=== PATIENT | female | born 1955 | race African-American/Black ===

== ENCOUNTER 2020-06-23 15:05 | Inpatient (IN) | payer MEDICARE, MEDICAID ==
[~2020-06-23] VITALS: Ht 160 cm; Wt 128.7 kg
[~2020-06-23 15:05] MED LIST: ACETAMINOPHEN325 MG PO; AMBIEN5 MG PO; CARDIZEM30 MG PO; CLARITIN 10 MG10 MG PO; FLUTICASONE PRO16 GM NASAL; HUMALOG 30100 UNITS/ SC; HYDROXYZINE HCL10 MG PO; LINEZOLID600 MG PO; LOMOTIL TABLET1 TAB PO; MUCINEX600 MG PO; MYCOSTATIN500000 UNI PO; OMEPRAZOLE20 M1 PO; POTASSIUM CHLO20 MEQ PO; PREDNISONE20 MG PO; PROVENTIL/2.5 MG/3 M INH; XALATAN 0.0052.5 ML EACH EYE; XANAX0.5 MG PO; XIFAXAN550 MG PO; ZOFRAN4 MG PO
[2020-06-23 15:43] LABS: BASOPHILS 0.4 % (0-2); EOSINOPHILS 1.7 % (0-7); HEMATOCRIT 34.6 % (36.0-48.0); HEMOGLOBIN 10.5 g/dL (12-16); LYMPHOCYTES 33.2 % (15-50); MCH 28.6 pg (26.0-34.0); MCHC 30.3 g/dL (31.0-37.0); MCV 94.3 fL (80.0-100.0); MEAN PLATELET VOLUME 9.9 fL (7.4-10.4); MONOCYTES 10.4 % (2-11); NEUTROPHILS 54.3 % (40-80); PLATELET COUNT 196 10x3/uL (130-400); RBC 3.67 10x6/uL (4.00-5.40); RDW 14.6 % (11.5-14.5); WBC 5.4 10x3/uL (4.8-10.8)
[2020-06-23 15:56] LABS: CALC OSMOLALITY 290 mosm/kg (275-300); CALCIUM 7.4 mg/dL (8.5-10.1); CARBON DIOXIDE 27.9 mmol/L (21.0-32.0); CHLORIDE - SERUM 98 mmol/L (98-107); CREATININE - SERUM 12.2 mg/dL (0.6-1.3); POTASSIUM - SERUM 3.8 mmol/L (3.5-5.1); SODIUM 139 mmol/L (136-145); UREA NITROGEN 42 mg/dL (7-18); eGFR NON AFRICAN AMERICAN 3 mL/min (90-120)
[2020-06-23 16:04] LABS: ALKALINE PHOSPHATASE 70 U/L (30-120); ALT (SGPT) 15 U/L (10-68); AMYLASE - SERUM 174 U/L (25-115); LIPASE 364 U/L (73-393); PROTEIN - SERUM 7.8 g/dL (6.4-8.2); TROPONIN-I < 0.017 ng/mL (0.000-0.060)
[2020-06-23 16:28] LABS: GLUCOSE 138 mg/dL (74-106)
--- NOTE | 2020-06-23 20:50 | NUR ---
RECEIVED FROM ER, A&OX4, HISTORY AND MEDS REVIEWED, ON ISO-PUI, L-AVF, DENIES ANY NEEDS, BED IS LOW, SRX2, CALL LIGHT IN REACH, WILL CONTINUE PLAN OF CARE
[2020-06-23 21:50] VITALS: BP 105/52
--- NOTE | 2020-06-23 21:55 | NUR ---
PAGED RENAL ACCOUNT DEVELOPMENT MANAGER, ABOUT LOVENOX AND PEPCID
--- NOTE | 2020-06-23 22:03 | NUR ---
DR. WEISS SAID TO PLACE LOVENOX AND PEPCID ON HOLD, WILL LOOK AT THESE TOMORROW
[2020-06-24 02:38] VITALS: BP 105/52; BMI 39.0
[2020-06-24 04:41] VITALS: BP 108/54
[2020-06-24 06:30] LABS: BASOPHILS 0.8 % (0-2); EOSINOPHILS 4.5 % (0-7); HEMATOCRIT 32.7 % (36.0-48.0); HEMOGLOBIN 9.9 g/dL (12-16); IMMATURE GRANULOCYTES 0.3 % (0-5); LYMPHOCYTES 31.2 % (15-50); MCH 28.4 pg (26.0-34.0); MCHC 30.3 g/dL (31.0-37.0); MEAN PLATELET VOLUME 9.6 fL (7.4-10.4); MONOCYTES 11.3 % (2-11); NEUTROPHILS 51.9 % (40-80); PLATELET COUNT 217 10x3/uL (130-400); RBC 3.48 10x6/uL (4.00-5.40); RDW 14.4 % (11.5-14.5)
[2020-06-24 06:40] LABS: WBC 3.8 10x3/uL (4.8-10.8)
[2020-06-24 06:42] LABS: ANION GAP 18.1 mmol/L (8-16); CALCIUM 7.2 mg/dL (8.5-10.1); CARBON DIOXIDE 27.8 mmol/L (21.0-32.0); CREATININE - SERUM 13.3 mg/dL (0.6-1.3); PHOSPHOROUS 5.6 mg/dL (2.5-4.9); POTASSIUM - SERUM 3.9 mmol/L (3.5-5.1)
--- NOTE | 2020-06-24 07:00 | NUR ---
RECEIVED REPORT. ASSUMED CARE OF PATIENT. PATIENT REMAINS IN ISOLATION FOR PUI FOR COVID19.
[2020-06-24 07:49] VITALS: BP 116/72
[2020-06-24 11:23] LABS: C-REACTIVE PROTEIN 19.6 mg/dL (0.0-0.9)
--- NOTE | 2020-06-24 11:54 | NUR ---
FSBS 152. PATIENT REFUSED INSULIN ADMINISTRATION DUE TO SHE SAYS SHE IS NOT EATING ENOUGH AND WILL BOTTOM OUT IF TREATED.
--- NOTE | 2020-06-24 16:35 | NUR ---
FSBS 152 AGAIN AT THIS TIME. GLUCOSE UNCHANGED. PATIENT REFUSES INSULIN AT THIS TIME AGAIN.
[2020-06-24 17:04] VITALS: BP 144/69
[2020-06-24 21:33] VITALS: BP 149/82
[2020-06-25 05:00] VITALS: BP 119/64
[2020-06-25 06:50] LABS: ANION GAP 16.4 mmol/L (8-16); CALCIUM 7.3 mg/dL (8.5-10.1); CARBON DIOXIDE 24.1 mmol/L (21.0-32.0); CREATININE - SERUM 15.6 mg/dL (0.6-1.3); MAGNESIUM - SERUM 2.1 mg/dL (1.8-2.4); PHOSPHOROUS 6.8 mg/dL (2.5-4.9); POTASSIUM - SERUM 4.5 mmol/L (3.5-5.1)
[2020-06-25 07:50] LABS: BASOPHILS 0.2 % (0-2); EOSINOPHILS 0.5 % (0-7); HEMATOCRIT 32.7 % (36.0-48.0); HEMOGLOBIN 10.3 g/dL (12-16); IMMATURE GRANULOCYTES 0.2 % (0-5); LYMPHOCYTES 7.8 % (15-50); MCH 28.9 pg (26.0-34.0); MCHC 31.5 g/dL (31.0-37.0); MEAN PLATELET VOLUME 9.9 fL (7.4-10.4); MONOCYTES 4.5 % (2-11); NEUTROPHILS 86.8 % (40-80); PLATELET COUNT 241 10x3/uL (130-400); RBC 3.57 10x6/uL (4.00-5.40); RDW 14.2 % (11.5-14.5)
[2020-06-25 07:52] LABS: MCV 91.6 fL (80.0-100.0); WBC 6.2 10x3/uL (4.8-10.8)
--- NOTE | 2020-06-25 08:00 | NUR ---
PT SITTING UP, RR EVEN AND LABORED UPON EXERTION ON RA. PT HAD TAKEN O2 OFF. PLACED BACK ON. STATES SHE FEELS BETTER. CALL LIGHT WITHIN REACH. BED IN LOWEST POSITON. CALL LIGHT WITHIN REACH. WILL CONTINUE TO MONITOR.
[2020-06-25 08:46] VITALS: BP 123/69
[2020-06-25 13:57] VITALS: Ht 160 cm; Wt 128.7 kg
[2020-06-25 21:11] VITALS: BP 130/84
[2020-06-26 07:16] LABS: BASOPHILS 0.1 % (0-2); EOSINOPHILS 4.3 % (0-7); HEMATOCRIT 32.6 % (36.0-48.0); HEMOGLOBIN 10.2 g/dL (12-16); IMMATURE GRANULOCYTES 0.1 % (0-5); LYMPHOCYTES 6.4 % (15-50); MCH 28.5 pg (26.0-34.0); MCHC 31.3 g/dL (31.0-37.0); MCV 91.1 fL (80.0-100.0); MONOCYTES 4.7 % (2-11); NEUTROPHILS 84.4 % (40-80); PLATELET COUNT 247 10x3/uL (130-400); RBC 3.58 10x6/uL (4.00-5.40); RDW 14.2 % (11.5-14.5); WBC 7.7 10x3/uL (4.8-10.8)
[2020-06-26 07:34] LABS: ANION GAP 21.8 mmol/L (8-16); CALCIUM 7.6 mg/dL (8.5-10.1); CARBON DIOXIDE 24.8 mmol/L (21.0-32.0); CREATININE - SERUM 12.1 mg/dL (0.6-1.3)
[2020-06-26 07:35] LABS: POTASSIUM - SERUM 3.6 mmol/L (3.5-5.1)
[2020-06-26 09:24] VITALS: BP 94/68
[2020-06-26 11:39] VITALS: BP 98/57
[2020-06-26 14:09] VITALS: BP 112/75
[2020-06-26] MEDS ORDERED: FEXOFENADINE HC60 MG PO (16:12)
[2020-06-26] MEDS ORDERED: MIDODRINE HCL2.5 MG PO (16:13)
[2020-06-26] MEDS ORDERED: AZITHROMYCIN500 MG PO (16:14)
[2020-06-26] MEDS ORDERED: DECADRON4 MG PO (16:14)
[2020-06-26] MEDS ORDERED: OMNICEF300 MG PO (16:15)
--- NOTE | 2020-06-26 17:29 | MORECARE ---
CASE MANAGEMENT DISCHARGE SUMMARY PATIENT: LANDEN HONG UNIT: [id number] ADM DATE: 06/23/20 AGE: 65 : 54 SEX: F ROOM/BED: D.0137 AUTHOR: CONOR DUMONT PHYSICIAN: REFERRING PHYSICIAN: RICKY GARCIA MD DATE OF SERVICE: 06/26/20 Discharge Plan Patient Name: LANDEN HONG [facility] [facility] 1955 Planned Disposition: Anticipated Discharge Date: 06/27/20 Discharge Date: Expected LOS: 4 Initial Reviewer: [email or web address] Initial Review Date: 06/23/2020 Generated: 06/26/20 6:28 pm Comments DCP- Discharge Planning Updated by [email or web address]: Celeste Mauro on 06/26/20 4:[address] CM contacted Sandra Brenden (HD) regarding HD days/time and that she is COVID positive. Per Sandra, the patient CANNOT go back to her HD chair in [place]. The patient will have to go to [facility] for HD, M/W/FR. There is NOT A TIME SET UP FOR HD as yet, as the unit is already closed for the day. Sandra will be in contact with [facility] HD unit 06/27, for the HD chair. Await CB. Patient Name: LANDEN HONG Page 96110 at 1729 All edits/amendments must be made on the electronic document DICTATION DATE: 06/26/201727 RESIDENTIAL FINISH CARPENTER: REYNOLD 06/26/201727 RPT#: [id number] DC DATE: STATUS: ADM IN [facility] [address] [place] [address] END OF REPORT
--- NOTE | 2020-06-26 17:55 | MORECARE ---
CASE MANAGEMENT DISCHARGE SUMMARY PATIENT: LANDEN HONG UNIT: [id number] ADM DATE: 06/23/20 AGE: 65 : 54 SEX: F ROOM/BED: D.6588 AUTHOR: CONOR DUMONT PHYSICIAN: REFERRING PHYSICIAN: RICKY GARCIA MD DATE OF SERVICE: 06/26/20 Discharge Plan Patient Name: LANDEN HONG Facility: [facility]:[place] : 1955 Planned Disposition: Anticipated Discharge Date: 06/27/20 Discharge Date: Expected LOS: 4 Initial Reviewer: [email or web address] Initial Review Date: 06/23/2020 Generated: 06/26/20 6:55 pm Comments DCP- Discharge Planning Updated by [email or web address]: Celeset Mauro on 06/26/20 4:[address] CM contacted Sandra Brenden (HD) regarding HD days/time and that she is COVID positive. Per Sandra, the patient CANNOT go back to her HD chair in [place]. The patient will have to go to [facility] for HD, M/W/FR. There is NOT A TIME SET UP FOR HD as yet, as the unit is already closed for the day. Sandra will be in contact with [facility] HD unit 06/27, for the HD chair. Await CB.Patient will also require transportation to and from HD unit. Last DP export: 06/26/20 4:28 pm Patient Name: LANDEN HONG Page [phone] at 1755 All edits/amendments must be made on the electronic document DICTATION DATE: 06/26/201754 PROCESS CHEESE COOKER: REYNOLD 06/26/201754 RPT#: [id number] DC DATE: STATUS: ADM IN [facility] [address] [place] [address] END OF REPORT
--- NOTE | 2020-06-26 18:23 | NUR ---
NOTIFIED FAMILY OF PT THAT PT WILL NOT BE DISCHARGED TODAY R/T NOT HAVING A CHAIR FOR DIALYSIS AND THAT PT WILL STAY AND DIALIZE TOMORROW WHICH WILL ALLOW FOR TIME TO SET UP DIALYSIS IN [facility]. FAMILY AGREED THAT WOULD BE BEST AT THIS TIME. WILL CTM.
--- NOTE | 2020-06-26 19:00 | NUR ---
PT RESTING IN BED. HAS 2L NC ON. NO DISTRESS NOTED. SHE DENIES NEEDS OR PAIN. BED IS LOW AND CALL LIGHT IS WITHIN REACH.
[2020-06-26 20:00] VITALS: BP 119/72
[2020-06-27 04:00] VITALS: BP 115/65
--- NOTE | 2020-06-27 07:51 | MORECARE ---
CASE MANAGEMENT DISCHARGE SUMMARY PATIENT: LANDEN HONG UNIT: [id number] ADM DATE: 06/23/20 AGE: 65 : 54 SEX: F ROOM/BED: D.2090 AUTHOR: CONOR DUMONT PHYSICIAN: REFERRING PHYSICIAN: RICKY GARCIA MD DATE OF SERVICE: 06/27/20 Discharge Plan Patient Name: LANDEN HONG Facility: [facility]:[place] : 1955 Planned Disposition: Home Anticipated Discharge Date: 06/27/20 Discharge Date: Expected LOS: 4 Initial Reviewer: [email or web address] Initial Review Date: 06/23/2020 Generated: 06/27/20 8:50 am Comments DCP- Discharge Planning Updated by [email or web address]: Celeste Mauro on 06/26/20 4:[address] CM contacted Sandra Brenden (HD) regarding HD days/time and that she is COVID positive. Per Sandra, the patient CANNOT go back to her HD chair in [place]. The patient will have to go to [facility] for HD, M/W/FR. There is NOT A TIME SET UP FOR HD as yet, as the unit is already closed for the day. Sandra will be in contact with [facility] HD unit 06/27, for the HD chair. Await CB.Patient will also require transportation to and from HD unit. Last DP export: 06/26/20 4:55 pm Patient Name: LANDEN HONG Page [phone] at 0751 All edits/amendments must be made on the electronic document DICTATION DATE: 06/27/20749 STUDENT RECORDS COORDINATOR: REYNOLD 06/27/20749 RPT#: [id number] DC DATE: STATUS: ADM IN [facility] [address] [place] [address] END OF REPORT
--- NOTE | 2020-06-27 07:58 | MORECARE ---
CASE MANAGEMENT DISCHARGE SUMMARY PATIENT: LANDEN HONG UNIT: [id number] ADM DATE: 06/23/20 AGE: 65 : 54 SEX: F ROOM/BED: D.4455 AUTHOR: JULIA,DOC PHYSICIAN: REFERRING PHYSICIAN: RICKY GARCIA MD DATE OF SERVICE: 06/27/20 Discharge Plan Patient Name: LANDEN HONG Facility: [facility]:[place] : 1955 Planned Disposition: Home Anticipated Discharge Date: 06/27/20 Discharge Date: Expected LOS: 4 Initial Reviewer: [email or web address] Initial Review Date: 06/23/2020 Generated: 06/27/20 8:57 am Comments DCP- Discharge Planning Updated by [email or web address]: Celeste Mauro on 06/26/20 4:[address] CM contacted Sandra Brenden (HD) regarding HD days/time and that she is COVID positive. Per Sandra, the patient CANNOT go back to her HD chair in [place]. The patient will have to go to [facility] for HD, M/W/FR. There is NOT A TIME SET UP FOR HD as yet, as the unit is already closed for the day. Sandra will be in contact with [facility] HD unit 06/27, for the HD chair. Await CB.Patient will also require transportation to and from HD unit. DCPIA - Discharge Planning Initial Assessment Updated by [email or web address]: Mony Davenport on 06/27/20 7:57 am * Is the patient Alert and Oriented? Yes * How many steps to enter\exit or inside your home? 0/0 * Pharmacy [facility] * Preadmission Environment Home with Family * Equipment None * List name and contact numbers for known caregivers / representatives who currently or will assist patient after discharge: MALLORY DUPONT [phone] * Verbal permission to speak to the caregivers and representatives has been obtained from the patient. Yes * Community resources currently utilized Other * Please name any agencies selected above. [facility] M[facility]F [facility] * Additional services required to return to the preadmission environment? No * Can the patient safely return to the preadmission environment? Yes * Has this patient been hospitalized within the prior 30 days at any hospital? No Last DP export: 06/27/20 6:51 am Patient Name: LANDEN HONG Page [phone] at 0758 All edits/amendments must be made on the electronic document DICTATION DATE: 06/27/20756 GENERAL HANDLING SUPERVISOR: REYNOLD 06/27/20 0757 RPT#: [id number] DC DATE: STATUS: ADM IN [facility] [address] [place] [address] END OF REPORT
--- NOTE | 2020-06-27 08:04 | MORECARE ---
CASE MANAGEMENT DISCHARGE SUMMARY PATIENT: LANDEN HONG UNIT: [id number] ADM DATE: 06/23/20 AGE: 65 : 54 SEX: F ROOM/BED: D.6770 AUTHOR: CONOR DUMONT PHYSICIAN: REFERRING PHYSICIAN: RICKY GARCIA MD DATE OF SERVICE: 06/27/20 Discharge Plan Patient Name: LANDEN HONG Facility: [facility]:[place] : 1955 Planned Disposition: Home Anticipated Discharge Date: 06/27/20 Discharge Date: Expected LOS: 4 Initial Reviewer: [email or web address] Initial Review Date: 06/23/2020 Generated: 06/27/20 9:04 am Comments DCP- Discharge Planning Updated by [email or web address]: Mony Davenport on 06/27/20 7:[address] Patient Name: LANDEN HONG Admission Status: ER Accout number: [id number] Admission Date: 06-23-2020 : 1955 Admission Diagnosis:COVID-19 Attending: RICKY GARCIA Current LOS: 4 Anticipated DC Date: 06-27-2020 Planned Disposition: Home Primary Insurance: [facility] MEDICARE SOLUTIONS LATE ENTRY ASSESSMENT COMPLETED 06/25/20 Discharge Planning Comments: Cm spoke with patient via phone to complete initial dc planning assessment. CM educated patient on the CM role and verbal consent given by patient to complete assessment. CM verified patient's address, phone number, and emergency contact phone numbers. Patient lives at home with her family. At discharge patient plans to return home and feels this is a safe discharge. CM discussed availability of home health, rehab services, and medical equipment. Patient denied known discharge needs at this time. Pt has an HD outpatient chair at [place] with a schedule of , and she has been scheduled for e [facility] unit at 0700. CM spoke with patient about this change. CM instructed pt will need to find arrangements for this new schedule. Pt stated she will get a bus ride. CM instructed pt that she will still be positive for COVID and public transportation may not provide transportation. Pt verbalized understanding. Stated her or daughter will drive her. Transportation provider at discharge will be her family. CM will continue to follow and will assist as needed with dc plans/needs. Performance Makeup Artist: Mony Davenport DCP- Discharge Planning Updated by [email or web address]: Celeste Turpinlroy on 06/26/20 4:[address] CM contacted Sandra Brenden (HD) regarding HD days/time and that she is COVID positive. Per Sandra, the patient CANNOT go back to her HD chair in [place]. The patient will have to go to [facility] for HD, M/W/FR. There is NOT A TIME SET UP FOR HD as yet, as the unit is already closed for the day. Sandra will be in contact with [facility] HD unit 06/27, for the HD chair. Await CB.Patient will also require transportation to and from HD unit. DCPIA - Discharge Planning Initial Assessment Updated by [email or web address]: Mony Davenport on 06/27/20 7:57 am * Is the patient Alert and Oriented? Yes * How many steps to enter\exit or inside your home? 0/0 * Pharmacy [facility] * Preadmission Environment Home with Family * Equipment None * List name and contact numbers for known caregivers / representatives who currently or will assist patient after discharge: MALLORY DUPONT [phone] * Verbal permission to speak to the caregivers and representatives has been obtained from the patient. Yes * Community resources currently utilized Other * Please name any agencies selected above. [facility] M[facility]F HD [facility]AIR * Additional services required to return to the preadmission environment? No * Can the patient safely return to the preadmission environment? Yes * Has this patient been hospitalized within the prior 30 days at any hospital? No Last DP export: 06/27/20 6:58 am Patient Name: LANDEN HONG Page 11489 at 0804 All edits/amendments must be made on the electronic document DICTATION DATE: 06/27/20803 NEUROLOGY TECHNOLOGIST: REYNOLD 06/27/20803 RPT#: [id number] DC DATE: STATUS: ADM IN [facility] [address] [place] [address] END OF REPORT
--- NOTE | 2020-06-27 08:29 | MORECARE ---
CASE MANAGEMENT DISCHARGE SUMMARY PATIENT: LANDEN HONG UNIT: [id number] ADM DATE: 06/23/20 AGE: 65 : 54 SEX: F ROOM/BED: D.3263 AUTHOR: CONOR DUMONT PHYSICIAN: REFERRING PHYSICIAN: RICKY GARCIA MD DATE OF SERVICE: 06/27/20 Discharge Plan Patient Name: LANDEN HONG Facility: [facility]:[place] : 1955 Planned Disposition: Home Anticipated Discharge Date: 06/27/20 Discharge Date: Expected LOS: 4 Initial Reviewer: [email or web address] Initial Review Date: 06/23/2020 Generated: 06/27/20 9:28 am Comments DCP- Discharge Planning Updated by [email or web address]: Mony Davenport on 06/27/20 7:[address] Patient Name: LANDEN HONG Encounter No: [id number] : 1955 Primary Insurance: [employer] MEDICARE SOLUTIONS Anticipated DC Date: 06-27-2020 Planned Disposition: Home External Planned Provider: : DCP follow-up note: CM called pt about final dc plan. CM reinforced new HD place and time. Pt stated her family will transport her to dialysis. Pt has home o2 from [employer] supplies. Pt states she does not have he portable tank with her. CM called her daughter Mallory at [phone] who has agreed to bring her tank when she comes to pick her up. DC IMM explained via phone verbalized understanding. CM spoke to patient about home health, and Rehab. Pt denies additional DC needs at this time. Declination verbalized for home health, and rehab. Patient and family in agreement with discharge plan. No changes to plan. Case management will follow and assist as needed. Mony aDvenport DCP- Discharge Planning Updated by [email or web address]: Mony Davenport on 06/27/20 7:[address] Patient Name: LANDEN HONG Admission Status: ER Accout number: [id number] Admission Date: 06-23-2020 : 1955 Admission Diagnosis:COVID-19 Attending: RICKY GARCIA Current LOS: 4 Anticipated DC Date: 06-27-2020 Planned Disposition: Home Primary Insurance: [facility] MEDICARE SOLUTIONS LATE ENTRY ASSESSMENT COMPLETED 06/25/20 Discharge Planning Comments: Cm spoke with patient via phone to complete initial dc planning assessment. CM educated patient on the CM role and verbal consent given by patient to complete assessment. CM verified patient's address, phone number, and emergency contact phone numbers. Patient lives at home with her family. At discharge patient plans to return home and feels this is a safe discharge. CM discussed availability of home health, rehab services, and medical equipment. Patient denied known discharge needs at this time. Pt has an HD outpatient chair at [place] with a schedule of , and she has been scheduled for e [facility] unit -- at 0700. CM spoke with patient about this change. CM instructed pt will need to find arrangements for this new schedule. Pt stated she will get a bus ride. CM instructed pt that she will still be positive for COVID and public transportation may not provide transportation. Pt verbalized understanding. Stated her or daughter will drive her. Transportation provider at discharge will be her family. CM will continue to follow and will assist as needed with dc plans/needs. Flash Welding Machine Operator: Mony Davenport DCP- Discharge Planning Updated by [id number]: Celeste Mauro on 06/26/20 4:[address] CM contacted Sandra Brenden (HD) regarding HD days/time and that she is COVID positive. Per Sandra, the patient CANNOT go back to her HD chair in [place]. The patient will have to go to [facility] for HD, M/W/FR. There is NOT A TIME SET UP FOR HD as yet, as the unit is already closed for the day. Sandra will be in contact with [facility] HD unit 06/27, for the HD chair. Await CB.Patient will also require transportation to and from HD unit. DCPIA - Discharge Planning Initial Assessment Updated by [id number]: Mony Davenport on 06/27/20 7:57 am * Is the patient Alert and Oriented? Yes * How many steps to enter\exit or inside your home? 0/0 * Pharmacy [facility] * Preadmission Environment Home with Family * Equipment None * List name and contact numbers for known caregivers / representatives who currently or will assist patient after discharge: MALLORY DUPONT [phone] * Verbal permission to speak to the caregivers and representatives has been obtained from the patient. Yes * Community resources currently utilized Other * Please name any agencies selected above. [facility] * Additional services required to return to the preadmission environment? No * Can the patient safely return to the preadmission environment? Yes * Has this patient been hospitalized within the prior 30 days at any hospital? No Last DP export: 06/27/20 7:04 am Patient Name: LANDEN HONG Page 24565 at 0829 All edits/amendments must be made on the electronic document DICTATION DATE: 06/27/20827 HEEL BRUSHER: REYNOLD 06/27/20827 RPT#: [id number] DC DATE: STATUS: ADM IN [facility] [address] [place] [address] END OF REPORT
--- NOTE | 2020-06-27 08:41 | NUR ---
I CALLED [facility] TO SEE WHAT TIME FOR DIALYSIS TODAY FOR DISCHARGE. SHE STATES THAT SHE WILL TRY TO DO HER FIRST.
--- NOTE | 2020-06-27 08:46 | NUR ---
AARTI GALLAGHER APN TO COME BY AND STATE THAT PATIENT DOES NOT NEED DIALYSIS TODAY. I CALLED [facility] AND LET HER BE AWARE OF THIS.
[2020-06-27 08:55] VITALS: BP 101/63
--- NOTE | 2020-06-27 09:56 | MORECARE ---
CASE MANAGEMENT DISCHARGE SUMMARY PATIENT: LANDEN HONG UNIT: [id number] ADM DATE: 06/23/20 AGE: 65 : 53 SEX: F ROOM/BED: D.0279 AUTHOR: CONOR DUMONT PHYSICIAN: REFERRING PHYSICIAN: RICKY GARCIA MD DATE OF SERVICE: 06/27/20 Discharge Plan Patient Name: LANDEN HONG Facility: [facility]:[place] : 1955 Planned Disposition: Home Anticipated Discharge Date: 06/27/20 Discharge Date: Expected LOS: 4 Initial Reviewer: [email or web address] Initial Review Date: 06/23/2020 Generated: 06/27/20 10:56 am Comments DCP- Discharge Planning Updated by [email or web address]: Mony Davenport on 06/27/20 7:[address] Patient Name: LANDEN HONG Encounter No: [id number] : 1955 Primary Insurance: [employer] MED[employer] SOLUTIONS Anticipated DC Date: 06-27-2020 Planned Disposition: Home External Planned Provider: : DCP follow-up note: CM called pt about final dc plan. CM reinforced new HD place and time. Pt stated her family will transport her to dialysis. Pt has home o2 from [employer] supplies. Pt states she does not have he portable tank with her. CM called her daughter Mallory at [phone] who has agreed to bring her tank when she comes to pick her up. DC IMM explained via phone verbalized understanding. CM spoke to patient about home health, and Rehab. Pt denies additional DC needs at this time. Declination verbalized for home health, and rehab. Patient and family in agreement with discharge plan. No changes to plan. Case management will follow and assist as needed. Mony Davenport DCP- Discharge Planning Updated by [email or web address]: Mony Davenport on 06/27/20 7:[address] Patient Name: LANDEN HONG Admission Status: ER Accout number: [id number] Admission Date: 06-23-2020 : 1955 Admission Diagnosis:COVID-19 Attending: RICKY GARCIA Current LOS: 4 Anticipated DC Date: 06-27-2020 Planned Disposition: Home Primary Insurance: [facility] MEDICARE SOLUTIONS LATE ENTRY ASSESSMENT COMPLETED 06/25/20 Discharge Planning Comments: Cm spoke with patient via phone to complete initial dc planning assessment. CM educated patient on the CM role and verbal consent given by patient to complete assessment. CM verified patient's address, phone number, and emergency contact phone numbers. Patient lives at home with her family. At discharge patient plans to return home and feels this is a safe discharge. CM discussed availability of home health, rehab services, and medical equipment. Patient denied known discharge needs at this time. Pt has an HD outpatient chair at [place] with a schedule of , and she has been scheduled for e [facility] unit -- at 0700. CM spoke with patient about this change. CM instructed pt will need to find arrangements for this new schedule. Pt stated she will get a bus ride. CM instructed pt that she will still be positive for COVID and public transportation may not provide transportation. Pt verbalized understanding. Stated her or daughter will drive her. Transportation provider at discharge will be her family. CM will continue to follow and will assist as needed with dc plans/needs. Aerial Survey Technician: Mony Davenport DCP- Discharge Planning Updated by [email or web address]: Celeste Mauro on 06/26/20 4:[address] CM contacted Sandra Brenden (HD) regarding HD days/time and that she is COVID positive. Per Sandra, the patient CANNOT go back to her HD chair in [place]. The patient will have to go to [facility] for HD, M/W/FR. There is NOT A TIME SET UP FOR HD as yet, as the unit is already closed for the day. Sandra will be in contact with [facility] HD unit 06/27, for the HD chair. Await CB.Patient will also require transportation to and from HD unit. DCPIA - Discharge Planning Initial Assessment Updated by [email or web address]: Mony Davenport on 06/27/20 7:57 am * Is the patient Alert and Oriented? Yes * How many steps to enter\exit or inside your home? 0/0 * Pharmacy [facility] * Preadmission Environment Home with Family * Equipment None * List name and contact numbers for known caregivers / representatives who currently or will assist patient after discharge: MALLORY DUPONT [phone] * Verbal permission to speak to the caregivers and representatives has been obtained from the patient. Yes * Community resources currently utilized Other * Please name any agencies selected above. [facility] * Additional services required to return to the preadmission environment? No * Can the patient safely return to the preadmission environment? Yes * Has this patient been hospitalized within the prior 30 days at any hospital? No External Providers External Provider: OTHER-OTHER Next Contact Date: Service Request Date: Service Type: Resolution: Reviewer: Comments: Last DP export: 06/27/20 7:29 am Patient Name: LANDEN HONG Page 12768 at 0956 All edits/amendments must be made on the electronic document DICTATION DATE: 06/27/20955 AVIATION SAFETY TECHNICIAN: REYNOLD 06/27/20955 RPT#: [id number] DC DATE: STATUS: ADM IN [facility] [address] [place] [address] END OF REPORT
--- NOTE | 2020-06-27 10:08 | NUR ---
PT SITTING UP IN BED, RR EVEN AND UNLABORED. DENIES NEEDS OR PAIN AT THIS TIME. CALL LIGHT WTIHIN RECH, BED IN LOWEST POSITION. WILL CONTINUE TO MONITOR.
--- NOTE | 2020-06-27 12:26 | MORECARE ---
CASE MANAGEMENT DISCHARGE SUMMARY PATIENT: LANDEN HONG UNIT: [id number] ADM DATE: 06/23/20 AGE: 65 : 53 SEX: F ROOM/BED: D.2224 AUTHOR: CONOR DUMONT PHYSICIAN: REFERRING PHYSICIAN: RICKY GARCIA MD DATE OF SERVICE: 06/27/20 Discharge Plan Patient Name: LANDEN HONG Facility: [facility]:[place] : 1955 Planned Disposition: Home Anticipated Discharge Date: 06/27/20 Discharge Date: Expected LOS: 4 Initial Reviewer: [email or web address] Initial Review Date: 06/23/2020 Generated: 06/27/20 1:26 pm Comments DCP- Discharge Planning Updated by [email or web address]: Mony Davenport on 06/27/20 7:[address] Patient Name: LANDEN HNOG Encounter No: [id number] : 1955 Primary Insurance: [employer] Anticipated DC Date: 06-27-2020 Planned Disposition: Home External Planned Provider: : DCP follow-up note: CM called pt about final dc plan. CM reinforced new HD place and time. Pt stated her family will transport her to dialysis. Pt has home o2 from [email or web address] supplies. Pt states she does not have he portable tank with her. CM called her daughter Mallory at [phone] who has agreed to bring her tank when she comes to pick her up. DC IMM explained via phone verbalized understanding. CM spoke to patient about home health, and Rehab. Pt denies additional DC needs at this time. Declination verbalized for home health, and rehab. Patient and family in agreement with discharge plan. No changes to plan. Case management will follow and assist as needed. Mony Davenport DCP- Discharge Planning Updated by [id number]: Mony Davenport on 06/27/20 7:[address] Patient Name: LANDEN HONG Admission Status: ER Accout number: [id number] Admission Date: 06-23-2020 : 1955 Admission Diagnosis:COVID-19 Attending: RICKY GARCIA Current LOS: 4 Anticipated DC Date: 06-27-2020 Planned Disposition: Home Primary Insurance: [facility] MEDICARE SOLUTIONS LATE ENTRY ASSESSMENT COMPLETED 06/25/20 Discharge Planning Comments: Cm spoke with patient via phone to complete initial dc planning assessment. CM educated patient on the CM role and verbal consent given by patient to complete assessment. CM verified patient's address, phone number, and emergency contact phone numbers. Patient lives at home with her family. At discharge patient plans to return home and feels this is a safe discharge. CM discussed availability of home health, rehab services, and medical equipment. Patient denied known discharge needs at this time. Pt has an HD outpatient chair at [facility] with a schedule of , and she has been scheduled for [facility] unit -- at 0700. CM spoke with patient about this change. CM instructed pt will need to find arrangements for this new schedule. Pt stated she will get a bus ride. CM instructed pt that she will still be positive for COVID and public transportation may not provide transportation. Pt verbalized understanding. Stated her or daughter will drive her. Transportation provider at discharge will be her family. CM will continue to follow and will assist as needed with dc plans/needs. Elevator Erector: Mony Davenport DCP- Discharge Planning Updated by [email or web address]: Celeste Mauro on 06/26/20 4:[address] CM contacted Sandra Brenden (HD) regarding HD days/time and that she is COVID positive. Per Sandra, the patient CANNOT go back to her HD chair in [facility]. The patient will have to go to [facility] for HD, M/W/FR. There is NOT A TIME SET UP FOR HD as yet, as the unit is already closed for the day. Sandra will be in contact with [facility] HD unit 06/27, for the HD chair. Await CB.Patient will also require transportation to and from HD unit. DCPIA - Discharge Planning Initial Assessment Updated by [email or web address]: Mony Davenport on 06/27/20 12:17 pm * Is the patient Alert and Oriented? Yes * How many steps to enter\exit or inside your home? 0/0 * PCP Dr Wang * Pharmacy [facility] * Preadmission Environment Home with Family * ADLs Independent * Equipment Bedside Commode Cane Elevated [place] Seat Glucometer Nebulizer Oxygen Rolling Walker Shower Chair * List name and contact numbers for known caregivers / representatives who currently or will assist patient after discharge: MALLORY DUPONT [phone] * Verbal permission to speak to the caregivers and representatives has been obtained from the patient. Yes * Community resources currently utilized None * Please name any agencies selected above. [facility] * Additional services required to return to the preadmission environment? No * Can the patient safely return to the preadmission environment? Yes * Has this patient been hospitalized within the prior 30 days at any hospital? No Coverage Notice Reviewer: [email or web address] Evelia Davenport Notice Issued Date-Time: 06/27/2020 8:00 Notice Type: IM Discharge Notice Notice Delivered To: Patient Relationship to Patient: Segregator Name: Delivery Method: PHONE - Phone Virgie Days: Prior Verbal Notification: Yes Recipient Understood Notice: Yes Recipient Signature: Med Rec Note Co-signed by Attending: Coverage Notice Comment: DC IMM explained via phone. verbalized understanding. Reviewer: [id number] Evelia Davenport Notice Issued Date-Time: 06/27/2020 8:00 Notice Type: Patient Choice Letter Notice Delivered To: Patient Relationship to Patient: Segregator Name: Delivery Method: PHONE - Phone Virgie Days: Prior Verbal Notification: Yes Recipient Understood Notice: Yes Recipient Signature: Med Rec Note Co-signed by Attending: Coverage Notice Comment: ELVIS for [facility], declination signed for HH or rehab Last DP export: 06/27/20 8:56 am Patient Name: LANDEN HONG Page [id number] at 1226 All edits/amendments must be made on the electronic document DICTATION DATE: 06/27/20 1226 CLOTH INSPECTOR: REYNOLD 06/27/20 1226 RPT#: [id number] DC DATE: STATUS: ADM IN [facility] [address] [place] [address] END OF REPORT
--- NOTE | 2020-06-27 12:30 | NUR ---
I have reviewed this patient and I concur with the Shift Assessment completed by the Licensed Practical Nurse today this shift.
--- NOTE | 2020-06-27 13:30 | NUR ---
D/C INSTRUCTIONS REVIEWED WITH PT, VERBALIZED UNDERSTANDING. PT IN COVID PRECAUTIONS AND UNABLE TO SIGN D/C PAPERWORK. IV D/C WITH CATHETER TIP INTACT. PT LEFT VIA WHEELCHAIR TO PERSONAL VEHICLE.
--- NOTE | 2020-06-27 17:15 | MORECARE ---
CASE MANAGEMENT DISCHARGE SUMMARY PATIENT: LANDEN HONG UNIT: [id number] ADM DATE: 06/23/20 AGE: 65 : 53 SEX: F ROOM/BED: D.8925 AUTHOR: CONOR DUMONT PHYSICIAN: REFERRING PHYSICIAN: RICKY GARCIA MD DATE OF SERVICE: 06/27/20 Discharge Plan Patient Name: LANDEN HONG Facility: [facility]:[place] : 1955 Planned Disposition: Home Anticipated Discharge Date: 06/27/20 Discharge Date: 06/27/2020 Expected LOS: 4 Initial Reviewer: [email or web address] Initial Review Date: 06/23/2020 Generated: 06/27/20 6:14 pm Comments DCP- Discharge Planning Updated by [id number]: Mony Davenport on 06/27/20 7:[address] Patient Name: LANDEN HONG Encounter No: [id number] : 1955 Primary Insurance: [facility] MEDICARE SOLUTIONS Anticipated DC Date: 06-27-2020 Planned Disposition: Home External Planned Provider: : DCP follow-up note: CM called pt about final dc plan. CM reinforced new HD place and time. Pt stated her family will transport her to dialysis. Pt has home o2 from [email or web address]. Pt states she does not have he portable tank with her. CM called her daughter Mallory at [phone] who has agreed to bring her tank when she comes to pick her up. DC IMM explained via phone verbalized understanding. CM spoke to patient about home health, and Rehab. Pt denies additional DC needs at this time. Declination verbalized for home health, and rehab. Patient and family in agreement with discharge plan. No changes to plan. Case management will follow and assist as needed. Mony Davenport DCP- Discharge Planning Updated by [id number]: Mony Davenport on 06/27/20 7:[address] Patient Name: LANDEN HONG Admission Status: ER Accout number: [id number] Admission Date: 06-23-2020 : 1955 Admission Diagnosis:COVID-19 Attending: RICKY GARCIA Current LOS: 4 Anticipated DC Date: 06-27-2020 Planned Disposition: Home Primary Insurance: [facility] MEDICARE SOLUTIONS LATE ENTRY ASSESSMENT COMPLETED 06/25/20 Discharge Planning Comments: Cm spoke with patient via phone to complete initial dc planning assessment. CM educated patient on the CM role and verbal consent given by patient to complete assessment. CM verified patient's address, phone number, and emergency contact phone numbers. Patient lives at home with her family. At discharge patient plans to return home and feels this is a safe discharge. CM discussed availability of home health, rehab services, and medical equipment. Patient denied known discharge needs at this time. Pt has an HD outpatient chair at [facility] with a schedule of , and she has been scheduled for e [facility] unit --[facility] at 0700. CM spoke with patient about this change. CM instructed pt will need to find arrangements for this new schedule. Pt stated she will get a bus ride. CM instructed pt that she will still be positive for COVID and public transportation may not provide transportation. Pt verbalized understanding. Stated her or daughter will drive her. Transportation provider at discharge will be her family. CM will continue to follow and will assist as needed with dc plans/needs. Classroom Assistant: Mony Davenport DCP- Discharge Planning Updated by [id number]: Celeste Mauro on 06/26/20 4:[address] CM contacted Sandra Brenden (HD) regarding HD days/time and that she is COVID positive. Per Sandra, the patient CANNOT go back to her HD chair in [facility]. The patient will have to go to [facility] for HD, M/W/FR. There is NOT A TIME SET UP FOR HD as yet, as the unit is already closed for the day. Sandra will be in contact with [facility] HD unit 06/27, for the HD chair. Await CB.Patient will also require transportation to and from HD unit. DCPIA - Discharge Planning Initial Assessment Updated by [id number]: Mony Davenport on 06/27/20 12:17 pm * Is the patient Alert and Oriented? Yes * How many steps to enter\exit or inside your home? 0/0 * PCP Dr Wang * Pharmacy [facility] * Preadmission Environment Home with Family * ADLs Independent * Equipment Bedside Commode Cane Elevated [place] Seat Glucometer Nebulizer Oxygen Rolling Walker Shower Chair * List name and contact numbers for known caregivers / representatives who currently or will assist patient after discharge: MALLORY DUPONT [phone] * Verbal permission to speak to the caregivers and representatives has been obtained from the patient. Yes * Community resources currently utilized None * Please name any agencies selected above. [facility] * Additional services required to return to the preadmission environment? No * Can the patient safely return to the preadmission environment? Yes * Has this patient been hospitalized within the prior 30 days at any hospital? No Coverage Notice Reviewer: [email or web address] Davenport Notice Issued Date-Time: 06/27/2020 8:00 Notice Type: IM Discharge Notice Notice Delivered To: Patient Relationship to Patient: Enterprise Integration Developer Name: Delivery Method: PHONE - Phone Virgie Days: Prior Verbal Notification: Yes Recipient Understood Notice: Yes Recipient Signature: Med Rec Note Co-signed by Attending: Coverage Notice Comment: DC IMM explained via phone. verbalized understanding. Reviewer: [id number] Evelia Davenport Notice Issued Date-Time: 06/27/2020 8:00 Notice Type: Patient Choice Letter Notice Delivered To: Patient Relationship to Patient: Enterprise Integration Developer Name: Delivery Method: PHONE - Phone Virgie Days: Prior Verbal Notification: Yes Recipient Understood Notice: Yes Recipient Signature: Med Rec Note Co-signed by Attending: Coverage Notice Comment: ELVIS for [facility], declination signed for HH or rehab Last DP export: 06/27/20 11:26 am Patient Name: LANDEN HONG Page [id number] at 1715 All edits/amendments must be made on the electronic document DICTATION DATE: 06/27/201713 AMBULATORY CARE COORDINATOR: REYNOLD 06/27/201713 RPT#: [id number] DC DATE:06/27/20 STATUS: DIS IN [facility] [id number] [place] [address] END OF REPORT
== END 2020-06-27 13:59 | disposition home or self-care (01) | DRG 177 ==
LOC: D.ER 15:05 → D.M2 17:36 → D.MS 19:47 → D.M2 20:35
PROVIDERS: Emergency Medicine; Family Medicine; ADMIT Family Medicine; ATTEND Family Medicine
DX: U07.1 COVID-19 (principal); N18.6 End stage renal disease; J18.9 Pneumonia, unspecified organism; J96.01 Acute respiratory failure with hypoxia; I12.0 Hypertensive chronic kidney disease with stage 5 chronic kidney disease or end stage renal disease; E11.22 Type 2 diabetes mellitus with diabetic chronic kidney disease; Z99.2 Dependence on renal dialysis; D64.9 Anemia, unspecified; K21.9 Gastro-esophageal reflux disease without esophagitis; M19.90 Unspecified osteoarthritis, unspecified site; E66.9 Obesity, unspecified; Z68.39 Body mass index [BMI] 39.0-39.9, adult; F41.9 Anxiety disorder, unspecified; I95.9 Hypotension, unspecified; L29.9 Pruritus, unspecified